=== PATIENT | male | born 1970 | race Two or more races ===

== ENCOUNTER 2017-08-09 23:21 | Emergency (ER) | payer OTHER ==
[~2017-08-09] VITALS: Ht 175.3 cm; Wt 70.8 kg
[2017-08-10 01:30] VITALS: BP 142/97
== END 2017-08-10 01:30 | disposition home or self-care (01) ==
LOC: ED 23:21
DX: R22.1 Localized swelling, mass and lump, neck (principal)
CPT/HCPCS: J1100; Q0092